=== PATIENT | male | born 1950 | race Caucasian/White ===

== ENCOUNTER 2016-10-23 12:05 | Emergency (ER) | payer OTHER ==
[~2016-10-23] VITALS: Ht 175.3 cm; Wt 100.0 kg
[2016-10-23 12:07] VITALS: BP 186/103; PULSE 101; RESP 16; TEMP 97.9; O2SAT 98
--- NOTE | 2016-10-23 12:41 | PD ---
HPI Chief Complaint: Dizziness Time Seen by Provider: 12:41 Travel History International Travel<30 days: No Contact w/Intl Traveler<30days: No Traveled to known affect area: No History of Present Illness HPI 66-year-old male with history of hypertension presents to emergency department from the [place] for evaluation of a near syncopal episode. Patient was at the [place] when he became dizzy. His blood pressure was noted to be elevated. He denied any headache, chest pain or tightness. No shortness of breath.His seat nausea vomiting. No focal deficits or weakness. Patient states he continues to be moderately dizzy with room spinning while he lies in the bed he feels as though it may be resolving. He has no other history to report at this time. [facility] Past Medical History Hypertension: Yes Social History Alcohol Use: No Tobacco Use: No Substance Use: No Review of Systems Except as stated in HPI: all other systems reviewed are Neg Physical Exam Narrative GENERAL: Well-nourished male patient, lying in bed in no acute distress SKIN: Warm and dry. HEAD: Atraumatic. Normocephalic. EYES: Pupils equal and round. No scleral icterus. No injection or drainage. ENT: No nasal bleeding or discharge. Mucous membranes pink and moist. NECK: Trachea midline. No JVD. CARDIOVASCULAR: Regular rate and rhythm. No murmur appreciated. RESPIRATORY: No accessory muscle use. Diminished to auscultation. Breath sounds equal bilaterally. GASTROINTESTINAL: Abdomen soft, non-tender, nondistended. Hepatic and splenic margins not palpable. MUSCULOSKELETAL: No obvious deformities. No clubbing. No cyanosis. No edema. NEUROLOGICAL: Awake and alert. No obvious cranial nerve deficits. Motor grossly within normal limits. Normal speech. PSYCHIATRIC: Appropriate mood and affect; insight and judgment normal. Data Data Last Documented VS Vital Signs Date Time Temp Pulse Resp B/P Pulse Ox O2 Delivery O2 Flow Rate FiO2 10/23/16 12:07 97.9 101 16 186/103 98 Orders Electrocardiogram (10/23/16 12:41) Basic Metabolic Panel (Bmp) (10/23/16 12:41) Ckmb (Isoenzyme) Profile (10/23/16 12:41) Complete Blood Count With Diff (10/23/16 12:41) Troponin I (10/23/16 12:41) Urinalysis - C+S If Indicated (10/23/16 12:41) Chest, Single Ap (10/23/16 ) Ct Brain W/O Iv Contrast(Rout) (10/23/16 ) Magnesium (Mg) (10/23/16 12:59) MDM Medical Decision Making Medical Screen Exam Complete: Yes Emergency Medical Condition: Yes Medical Record Reviewed: Yes Differential Diagnosis Syncope versus near-syncope versus electrolyte abnormality versus ACS versus ICH versus CVA versus TIA Narrative Course 66-year-old male presents to [facility] department for evaluation. Workup initiated at triage. Once a medical bed becomes available, patient will be transferred and care assumed that provider. Condition: Stable Maria De Jesus Rivera Oct 23, 2016 12:41 Maria De Jesus Rivera Oct 23, 2016 12:41
[2016-10-23 13:22] LABS: AUTOMATED NEUTROPHIL # 4.1 TH/MM3 (1.8-7.7); BASOPHIL % 0.7 % (0.0-2.0); EOSINOPHIL # 0.1 TH/MM3 (0-0.4); EOSINOPHIL % 1.2 % (0.0-4.0); HEMATOCRIT 39.6 % (39.0-51.0); HEMO FLAGS DIFF FINAL; LYMPH % 14.3 % (9.0-44.0); LYMPHOCYTE # 0.8 TH/MM3 (1.0-4.8); MEAN CELL VOLUME 92.3 FL (80.0-100.0); MEAN CORPUSCULAR HEMOGLOBIN 32.1 PG (27.0-34.0); MEAN CORPUSCULAR HGB CONC 34.7 % (32.0-36.0); MONO % 10.2 % (0.0-8.0); NEUT % 73.6 % (16.0-70.0); PLATELET COUNT 192 TH/MM3 (150-450); RED BLOOD COUNT 4.29 MIL/MM3 (4.50-5.90); RED CELL DISTRIBUTION WIDTH 13.9 % (11.6-17.2); WHITE BLOOD COUNT 5.6 TH/MM3 (4.0-11.0)
[2016-10-23 13:31] LABS: ANION GAP 10 MEQ/L (5-15); BICARBONATE 25.9 MEQ/L (21.0-32.0); BLOOD UREA NITROGEN 6 MG/DL (7-18); CHLORIDE 93 MEQ/L (98-107); GLOMERULAR FILTRATION RATE 118 ML/MIN (>89); POTASSIUM 3.7 MEQ/L (3.5-5.1); SODIUM (NA) 129 MEQ/L (136-145)
--- NOTE | 2016-10-23 13:32 | PD ---
HPI Chief Complaint: Dizziness Time Seen by Provider: 13:32 Travel History International Travel<30 days: No Contact w/Intl Traveler<30days: No Traveled to known affect area: No History of Present Illness HPI 66-year-old male came to the emergency room sent from the [place] with history of dizziness and hypertension. Patient is a chronic alcoholic and gets dizzy frequently. However when he got dizzy today he felt like he was going to fall and got very anxious. Patient also has history of anxiety and he went to see his doctor. After listening to his history they decided to send him to the emergency room to be evaluated. Patient was hypertensive in ER. Currently he is answering questions appropriately and seems anxious. He says he last drank this morning. He seems completely sober however. He was evaluated by the PA in triage and workup was initiated. When I saw him his CBC and chemistry was back. Patient has mild hyponatremia. There are no old labs present to compare this with. No history of vomiting or diarrhea. Patient says his dizziness feels better. [facility] Past Medical History Narrative Medical List of his past medical history, social history was reviewed from the nursing note. Hypertension: Yes Social History Alcohol Use: No Tobacco Use: No Substance Use: No Allergies-Medications (Allergen,Severity, Reaction): Coded Allergies: No Known Allergies (Unverified , 10/23/16) Comments List of his allergies reviewed from the nursing note. Reported Meds & Prescriptions Reported Meds & Active Scripts Active Meclizine (Meclizine HCl) 25 Mg Chew 25 Mg CHEW TID Reported Metoprolol Tartrate Unknown Strength Tab Unknown Dose PO DAILY Lisinopril 20 Mg Tab 20 Mg PO DAILY Narrative Medication List of his home medications reviewed from the nursing note. Review of Systems Except as stated in HPI: all other systems reviewed are Neg Physical Exam Narrative GENERAL: Awake, alert, anxious, moderate distress SKIN: Warm and dry. HEAD: Atraumatic. Normocephalic. EYES: Pupils equal and round. No scleral icterus. No injection or drainage. ENT: No nasal bleeding or discharge. Mucous membranes pink and moist. NECK: Trachea midline. No JVD. CARDIOVASCULAR: Regular rate and rhythm. No murmur appreciated. RESPIRATORY: No accessory muscle use. Clear to auscultation. Breath sounds equal bilaterally. GASTROINTESTINAL: Abdomen soft, non-tender, nondistended. Hepatic and splenic margins not palpable. MUSCULOSKELETAL: No obvious deformities. No clubbing. No cyanosis. No edema. NEUROLOGICAL: Awake and alert. No obvious cranial nerve deficits. Motor grossly within normal limits. Normal speech. Essential tremors PSYCHIATRIC: Appropriate mood and affect; insight and judgment normal. Data Data Last Documented VS Orders Electrocardiogram (10/23/16 12:41) Basic Metabolic Panel (Bmp) (10/23/16 12:41) Ckmb (Isoenzyme) Profile (10/23/16 12:41) Complete Blood Count With Diff (10/23/16 12:41) Troponin I (10/23/16 12:41) Urinalysis - C+S If Indicated (10/23/16 12:41) Chest, Single Ap (10/23/16 ) Ct Brain W/O Iv Contrast(Rout) (10/23/16 ) Magnesium (Mg) (10/23/16 12:59) Lorazepam Inj (Ativan Inj) (10/23/16 14:15) Meclizine (Antivert) (10/23/16 14:15) Sodium Chlorid 0.9% 500 Ml Inj (Ns 500 M (10/23/16 14:15) Labs MDM Medical Decision Making Medical Screen Exam Complete: Yes Emergency Medical Condition: Yes Medical Record Reviewed: Yes Interpretation(s) Twelve-lead EKG was reviewed by me. Normal sinus rhythm, normal axis, nonspecific ST-T wave changes. Heart rate of 82 bpm. Differential Diagnosis Intracranial bleed, TIA, dizziness, hyponatremia Narrative Course 2:18 PM patient was given 500 cc of bolus and IV Ativan. I will also ordered by mouth meclizine. Awaiting for the CT head and UA to come back. 2:[address] scan is within normal limits. Still waiting for UA. Procedures EKG Prior to Arrival: Yes Diagnosis Primary Impression: Dizziness Additional Impressions: Chronic alcohol abuse Hypertension Qualified Code: I10 - Essential hypertension Hyponatremia Anxiety Referrals: Primary Care Physician 1 day Additional Instructions: Please return to the ER if the condition worsens or any other new concerns. Do not drive until your symptoms are improved. Follow-up with your primary care tomorrow to recheck your blood pressure. Take the medication as per the prescription direction. He should not be drinking alcohol with your symptoms. Try joining an alcohol rehabilitation group Med/Other Pt SpecificInfo: Prescription(s) given Scripts Meclizine 25 Mg Chew25 Mg CHEW TID #15 TAB Ref 0 Prov:Mariel Gonzalez MD 10/23/16 Condition: Stable Mariel Gonzalez MD Oct 23, 2016 13:32 Neutrophils # (Auto) 4.1 TH/MM3 Lymphocytes # (Auto) 0.8 TH/MM3 Monocytes # (Auto) 0.6 TH/MM3 Eosinophils # (Auto) 0.1 TH/MM3 Basophils # (Auto) 0.0 TH/MM3 CBC Comment DIFF FINAL Differential Comment Sodium Level 129 MEQ/L Potassium Level 3.7 MEQ/L Chloride Level 93 MEQ/L Carbon Dioxide Level 25.9 MEQ/L Anion Gap 10 MEQ/L Blood Urea Nitrogen 6 MG/DL Creatinine 0.67 MG/DL Estimat Glomerular Filtration 118 ML/MIN Rate Random Glucose 95 MG/DL Calcium Level 8.7 MG/DL Magnesium Level 1.5 MG/DL Total Creatine Kinase 26 U/L Troponin I LESS THAN 0.02 NG/ML Urine Color YELLOW Urine Turbidity CLEAR Urine pH 7.5 Urine Specific [place] 1.009 Urine Protein NEG mg/dL Urine Glucose (UA) NEG mg/dL Urine Ketones TRACE mg/dL Urine Occult Blood NEG Urine Nitrite NEG Urine Bilirubin NEG Urine Urobilinogen LESS THAN 2.0 MG/DL Urine Leukocyte Esterase NEG Urine RBC 1 /hpf Urine WBC 1 /hpf Microscopic Urinalysis Comment CULT NOT INDICATED MDM Medical Decision Making Medical Screen Exam Complete: Yes Emergency Medical Condition: Yes Medical Record Reviewed: Yes Interpretation(s) Twelve-lead EKG was reviewed by me. Normal sinus rhythm, normal axis, nonspecific ST-T wave changes. Heart rate of 82 bpm. Differential Diagnosis Intracranial bleed, TIA, dizziness, hyponatremia Narrative Course 2:18 PM patient was given 500 cc of bolus and IV Ativan. I will also ordered by mouth meclizine. Awaiting for the CT head and UA to come back. 2:[address] scan is within normal limits. Still waiting for UA. Procedures EKG Prior to Arrival: Yes Diagnosis Primary Impression: Dizziness Additional Impressions: Chronic alcohol abuse Hypertension Qualified Code: I10 - Essential hypertension Hyponatremia Anxiety Referrals: Primary Care Physician 1 day Additional Instructions: Please return to the ER if the condition worsens or any other new concerns. Do not drive until your symptoms are improved. Follow-up with your primary care tomorrow to recheck your blood pressure. Take the medication as per the prescription direction. He should not be drinking alcohol with your symptoms. Try joining an alcohol rehabilitation group Med/Other Pt SpecificInfo: Prescription(s) given Scripts Meclizine 25 Mg Chew25 Mg CHEW TID #15 TAB Ref 0 Prov:Mariel Gonzalez MD 10/23/16 Condition: Stable Mariel Gonzalez MD Oct 23, 2016 13:32
[2016-10-23 13:46] VITALS: BP 190/96; PULSE 85; RESP 16; O2SAT 98
--- NOTE | 2016-10-23 13:50 | RADRPT ---
EXAM DATE/TIME: 10/23/2016 13:09 [facility] COMPARISON: No previous studies available for comparison. INDICATIONS : Dizziness and high blood pressure. MEDICAL HISTORY : Hypertension. SURGICAL HISTORY : None. ENCOUNTER: Initial ACUITY: 1 day PAIN SCORE: 0/10 LOCATION: Bilateral chest FINDINGS: Portable AP view of the chest demonstrates a normal-sized cardiac silhouette. No effusion, consolidat ion, or pneumothorax is visualized. The bones and soft tissues demonstrate no acute abnormality. CONCLUSION: No acute cardiopulmonary abnormality is identified. Joby Enriquez MD on October 23, 2016 at 13:48 Board Certified Radiologist. This report was verified electronically.
[2016-10-23] MEDS ORDERED: METO25TA3 PO (13:51)
[2016-10-23] MEDS ORDERED: LISI-515 PO (13:51)
--- NOTE | 2016-10-23 14:12 | RADRPT ---
EXAM DATE/TIME: 10/23/2016 13:31 [facility] COMPARISON: No previous studies available for comparison. INDICATIONS : Dizziness with increase in blood pressure. RADIATION DOSE: 44.63 CTDIvol (mGy) MEDICAL HISTORY : Vertigo. SURGICAL HISTORY : None. ENCOUNTER: Initial ACUITY: 1 day PAIN SCALE: 3/10 LOCATION: Bilateral cranial TECHNIQUE: Multiple contiguous axial images were obtained of the head. Using automated exposure control and adj ustment of the mA and/or kV according to patient size, radiation dose was kept as low as reasonably a chievable to obtain optimal diagnostic quality images. FINDINGS: CEREBRUM: The ventricles are normal for age. No evidence of midline shift, mass lesion, hemorrhage or acute in farction. No extra-axial fluid collections are seen. POSTERIOR FOSSA: The cerebellum and brainstem are intact. The 4th ventricle is midline. The cerebellopontine angle i s unremarkable. EXTRACRANIAL: The visualized portion of the orbits is intact. SKULL: The calvaria is intact. No evidence of skull fracture. CONCLUSION: Normal examination. Talib Paula Jr., MD on October 23, 2016 at 14:10 Board Certified Radiologist. This report was verified electronically.
[2016-10-23] MEDS ORDERED: LORazepam 2 MG/ML VIAL IV PUSH ONE (14:15)
[2016-10-23] MEDS ORDERED: MECLIZINE HCL 25 MG TAB PO ONE (14:15)
[2016-10-23] MEDS ORDERED: SODIUM CHLORID 0.9% 500 ML INJ 500 ML IV ONE (14:15)
[2016-10-23 14:43] LABS: CREATINE KINASE 26 U/L (39-308)
[2016-10-23 15:26] LABS: BLOOD, URINE NEG (NEG); GLUCOSE,URINE NEG (NEG); KETONE, URINE TRACE mg/dL (NEG); NITRITE,URINE NEG (NEG); PH, URINE 7.5 (5.0-8.5); URINE COLOR YELLOW (YELLW/STRAW)
[2016-10-23 15:27] LABS: COMMENT (UR) CULT NOT INDICATED; CULTURE IF INDICATED CULT NOT INDICATED
[2016-10-23] MEDS ORDERED: MECL25CH CHEW (15:37)
[2016-10-23 16:11] VITALS: BP 176/78
--- NOTE | 2016-10-24 17:15 | EKG ---
Date Performed: 10/23/2016 Time Performed: 13:05:51 PTAGE: 66 years EKG: Sinus rhythm NORMAL ECG NO PREVIOUS TRACING DOCTOR: Nydia Cloud Interpretating Date/Time 10/24/2016 17:14:32
== END 2016-10-23 16:12 | disposition home or self-care (01) ==
LOC: NEPE 12:05
DX: R42 Dizziness and giddiness (principal); F10.10 Alcohol abuse, uncomplicated; I10 Essential (primary) hypertension; E87.1 Hypo-osmolality and hyponatremia; F41.9 Anxiety disorder, unspecified
CPT/HCPCS: 70450; 71010; 80048; 81001; 82550; 83735; 84484; 85025; 93005; 96374; 99285; J2060; J7040